=== PATIENT | female | born 1950 | race Caucasian/White ===

== ENCOUNTER → 2016-07-29 | Outpatient (CLI) | payer MEDICARE ==
[~2016-07-29] MED LIST: ASPI-515 PO; CLOP75TA PO; DOCU100C8 PO; GLIP1TAB3 PO; LEVO75TA5 PO; LISI5TAB7 PO; METO25TA35 PO; OMEP-110 PO; OXYC5TAB3 PO; SIMV20TA3 PO
== END | disposition home or self-care (01) ==
LOC: CVU 10:48
PROVIDERS: ATTEND Internal Medicine Cardiovascular Disease
DX: I25.10 Atherosclerotic heart disease of native coronary artery without angina pectoris (principal); I73.9 Peripheral vascular disease, unspecified; I10 Essential (primary) hypertension; Z87.891 Personal history of nicotine dependence
CPT/HCPCS: 93922; 93978